=== PATIENT | male | born 1995 ===

== ENCOUNTER 2018-03-20 22:12 | Emergency (ER) | payer MEDICAID ==
[2018-03-20 22:43] VITALS: BMI 17.8
[2018-03-20 22:59] VITALS: RESP 18
--- NOTE | 2018-03-20 23:15 | ED PDOC ---
Arrival/HPI - General Chief Complaint: Abdominal Pain Time Seen by Provider: 03/20/18 23:14 Historian: Patient, Parent (Father) - History of Present Illness Narrative History of Present Illness (Text): 03/20/18 22:19 A 22 year old male, whose past medical history includes a nephrectomy, presents to the emergency department complaining of stomach pain since 4 days ago. Patient reports experiencing associated intermittent cramps and 2-3 diarrhea episodes today. Patient reports taking a pepto bismol for pain to no relief. Patient denies any recent travel, recent antibiotics, blood in stool, fever, chills, shortness of breath, chest pain, nausea, vomiting, urinary symptoms, back pain, neck pain, headache, dizziness, or any other complaints. Father at bedside states he is concerned about patient's kidney function d/t the diarrhea and would like the kidney function checked. Time/Duration: Other (4 days) Symptom Onset: Gradual Symptom Course: Unchanged Activities at Onset: Light Context: Home Past Medical History - Provider Review Nursing Documentation Reviewed: Yes - Renal Hx Renal Disorder: Yes Other/Comment: kidney cancer. removal of right kidney 2000. - Psychiatric Hx Substance Use: No Family/Social History - Physician Review Nursing Documentation Reviewed: Yes Family/Social History: Unknown Family HX Smoking Status: Never Smoked Hx Alcohol Use: No Hx Substance Use: No Allergies/Home Meds Allergies/Adverse Reactions: Allergies No Known Allergies Allergy (Verified 03/20/18 23:35) Home Medications: Home Meds Medication Instructions Recorded Confirmed RX: No Known Home Med 03/20/18 03/20/18 Review of Systems - Physician Review All systems were reviewed & negative as marked: Yes - Review of Systems Constitutional: absent: Fevers, Night Sweats Respiratory: absent: SOB Cardiovascular: absent: Chest Pain Gastrointestinal: Abdominal Pain (Stomach pain and cramps), Diarrhea. absent: Nausea, Vomiting Genitourinary Male: absent: Urinary Output Changes Musculoskeletal: absent: Back Pain, Neck Pain Neurological: absent: Headache, Dizziness Physical Exam Vital Signs Reviewed: Yes Vital Signs Temp Pulse Resp BP Pulse Ox 03/20/18 22:58 97.6 F 67 18 121/74 100 Temperature: Afebrile Blood Pressure: Normal Pulse: Regular Respiratory Rate: Normal Appearance: Positive for: Well-Appearing, Non-Toxic, Comfortable Pain Distress: None Mental Status: Positive for: Alert and Oriented X 3 - Systems Exam Head: Present: Atraumatic, Normocephalic Pupils: Present: PERRL Extroacular Muscles: Present: EOMI Conjunctiva: Present: Normal Mouth: Present: Moist Mucous Membranes Neck: Present: Normal Range of Motion Respiratory/Chest: Present: Clear to Auscultation, Good Air Exchange. No: Respiratory Distress, Accessory Muscle Use Cardiovascular: Present: Regular Rate and Rhythm, Normal S1, S2. No: Murmurs Abdomen: Present: Tenderness (+mild diffused abdominal tenderness ). No: Distention, Peritoneal Signs Back: Present: Normal Inspection Upper Extremity: Present: Normal Inspection. No: Cyanosis, Edema Lower Extremity: Present: Normal Inspection. No: Edema Neurological: Present: GCS=15, CN II-XII Intact, Speech Normal Skin: Present: Warm, Dry, Normal Color. No: Rashes Psychiatric: Present: Alert, Oriented x 3, Normal Insight, Normal Concentration Medical Decision Making ED Course and Treatment: 03/21/18 20:20 Impression: 22 year old male presenting to the emergency department complaining of stomach pain and diarrhea. Plan: -- Urinalysis -- CBC and BMP -- Reassess and disposition Prior Visits: Notes and results from previous visits were reviewed. Progress Notes: 03/21/18 21:06 Upon reassessment, patient looks well appearing. 03/21/18 01:35 Results of w/u discussed w/patient and father. Patient's renal function is normal and hemoglobin count was 13.3 and patient has not had any diarrhea episodes in the Emergency room. UA cancelled, pt did not provide sample and denies urinary sympotoms. Patient is advised to follow up with primary care doctor and given further information about diarrhea with advice on diet. - Scribe Statement The provider has reviewed the documentation as recorded by the Claudia Wiseman All medical record entries made by the Scribe were at my direction and personally dictated by me. I have reviewed the chart and agree that the record accurately reflects my personal performance of the history, physical exam, medical decision making, and the department course for this patient. I have also personally directed, reviewed, and agree with the discharge instructions and disposition. Disposition/Present on Arrival - Present on Arrival Any Indicators Present on Arrival: No History of DVT/PE: No History of Uncontrolled Diabetes: No Urinary Catheter: No History of Decub. Ulcer: No History Surgical Site Infection Following: None - Disposition Have Diagnosis and Disposition been Completed?: Yes Diagnosis: Diarrhea, Anemia, Abdominal pain Disposition: HOME/ ROUTINE Disposition Time: 01:35 Patient Plan: Discharge Condition: GOOD Discharge Instructions (ExitCare): Diarrhea in Adolescents and Adults, Acute Abdomen (Belly Pain), Adult (DC), Normocytic Normochromic Anemia (DC) Additional Instructions: JHOAN GUMSAN, thank you for letting us take care of you today. Your provider was Juana Dinh MD and you were treated for STOMACH PAIN. The emergency medical care you received today was directed at your acute symptoms. If you were prescribed any medication, please fill it and take as directed. It may take several days for your symptoms to resolve. Return to the Emergency Department if your symptoms worsen, do not improve, or if you have any other problems. Please contact your doctor for a follow up appointment in 1-2 days. Bring any paperwork you were given at discharge with you along with any medications you are taking to your follow up visit. Our treatment cannot replace ongoing medical care by a primary care provider outside of the emergency department. Thank you for allowing the [facility] team to be part of your care today. Referrals: Marely Guy MD [Family Provider] - Follow up with primary Forms: [employer] (Armenian)
[2018-03-21 00:42] LABS: BASO # 0.04 K/mm3 (0.0-2.0); BASO % 0.7 % (0.0-3.0); EOS # 0.1 (0.0-0.7); EOS % 2.2 % (1.5-5.0); GRAN # 2.33 (1.4-6.5); GRAN % 42.2 % (50.0-68.0); HEMOGLOBIN 13.3 g/dL (14.0-18.0); LYMPH # 2.4 (1.2-3.4); LYMPH % 43.8 % (22.0-35.0); MEAN CORPUSCULAR HEMOGLOBIN 30.2 pg (25.0-35.0); MEAN CORPUSCULAR HGB CONC 34.7 g/dl (31.0-37.0); MEAN PLATELET VOLUME 9.4 fl (7.0-11.0); MONO # 0.6 (0.1-0.6); MONO % 11.1 % (1.0-6.0); RBC 4.4 10^6/uL (3.5-6.1); RED CELL DISTRIBUTION WIDTH 12.5 % (11.5-14.5); WHITE BLOOD COUNT 5.5 10^3/ul (4.5-11.0)
[2018-03-21 00:51] LABS: BLOOD UREA NITROGEN 19 mg/dL (7-21); CALCIUM 9.3 mg/dL (8.4-10.5); GFR NON-AFRICAN AMERICAN > 60; LIPASE 54 U/L (23-300)
[2018-03-21 01:58] VITALS: BP 120/67; PULSE 59; TEMP 98; O2SAT 99
== END 2018-03-21 02:01 | disposition home or self-care (01) ==
LOC: ED 22:12
DX: D64.9 Anemia, unspecified (principal); R10.9 Unspecified abdominal pain; R19.7 Diarrhea, unspecified